=== PATIENT | female | born 1975 | race Caucasian/White ===

== ENCOUNTER 2017-03-31 18:01 | Emergency (ER) | payer OTHER ==
[~2017-03-31] VITALS: Ht 157.5 cm; Wt 79.4 kg
[~2017-03-31 18:01] MED LIST: ALBUTEROL17 GM INH; ALLERGY MEDICATION; BACTRIM DS TABL1 TA1 PO; BENTYL10 MG PO; BENTYL20 MG PO; CELEXA; CELEXA10 MG PO; CIPRO PO; CIPROFLOXACIN500 M1 PO; CLARITIN D; CLARITIN10 M1 PO; FLEXERIL10 M1 PO; FLEXERIL10 MG PO; FLOVENT DI50 MCG/DIS IH; GLUCOPHAGE XR500 MG PO; GLUCOTROL; GLUCOTROL PO; GLUCOTROL10 MG PO; HYZAAR PO; IBUPROFEN800 MG PO; INVOKANA100 MG PO; JANUVIA PO; KEFLEX250 M2 PO; LANTUS SOLOSTAR3 ML SUBQ; LISINOPRIL PO; LISINOPRIL-HCTZ1 T14 PO; LISINOPRIL20 MG PO; METFORMIN HCL500 M1 PO; MOBIC15 MG PO; MONDOXYNE NL100 MG PO; NAPROSYN500 MG PO; NEURONTIN600 MG DOB; NO MEDICATIONS; PHENERGAN DM1 ML DOB; PHENERGAN25 M1 PO; ROBAXIN500 MG PO; TOPAMAX PO; TYLENOL #3 PO; VICODIN 5/1 TAB 5/50 PO; VITAMIN D50000 UNIT PO; VOLTAREN50 MG PO; VOLTAREN75 MG PO; WAL-ZYR10 MG PO; ZANAFLEX4 M1 PO; ZITHROMAX PO; ZOFRAN ODT4 MG PO; ZOFRANODT PO; [UNRECOGNIZED DRUG - OTHER]; [UNRECOGNIZED DRUG - REMARK]; [UNRECOGNIZED DRUG - REMARK] PO
[2017-03-31] MEDS ORDERED: PRENATAL VITAM1 EAC2 (18:13)
[2017-03-31 19:16] LABS: BASOPHIL# 0.1 X10e3 (0-0.3); BASOPHIL% 0.7 % (0-2.5); EOSINOPHIL# 0.2 X10e3 (0-0.7); EOSINOPHIL% 2.1 % (0.0-7.0); HEMATOCRIT 42.7 % (35.0-45.0); HEMOGLOBIN 15.2 gm/dL (12.0-16.0); LYMPHOCYTE# 2.8 X10e3 (1.0-3.5); LYMPHOCYTE% 33.5 % (17.0-45.0); MEAN CELL VOLUME 88.1 FL (83-96); MEAN CORPUSCULAR HEMOGLOBIN 31.4 PG (28-34); MEAN CORPUSCULAR HGB CONC 35.6 g/dL (30-36); MEAN PLATELET VOLUME 5.7 FL (6.5-11.5); MONOCYTE# 0.6 X10e3 (0-1.0); MONOCYTE% 7.8 % (3.0-12.0); NEUTROPHIL# 4.7 X10e3 (1.5-7.1); NEUTROPHIL% 55.9 % (40-75); PLATELET COUNT 285 X10e3 (140-420); RED BLOOD COUNT 4.84 X10e (3.90-5.30); WHITE BLOOD COUNT 8.3 X10e3 (4.0-10.5)
[2017-03-31 19:17] LABS: DIFF IND NO
[2017-03-31 19:21] LABS: URINE SOURCE CLEAN CATCH
[2017-03-31 19:23] LABS: MICRO INDICATED? NO; URINE APPEARANCE HAZY; URINE BILIRUBIN NEG (NEG); URINE BLOOD NEG (NEG); URINE COLOR YELLOW; URINE GLUCOSE NEG (NORM); URINE KETONE 1+ (NEG); URINE LEUKOCYTE ESTERASE NEG (NEG); URINE NITRATE NEG (NEG); URINE PH 5.5 (5-8); URINE PROTEIN NEG (NEG); URINE SPECIFIC GRAVITY >=1.030 (1.003-1.035)
[2017-03-31 19:31] LABS: BUN/CREATININE RATIO 17.77; CALCIUM SERUM 8.9 mg/dL (8.4-10.2); CREATININE SERUM 0.9 mg/dL (0.6-1.4); GLOM FILT RATE Estimated 79.5 mL/min (>60); POTASSIUM 3.5 mmol/L (3.5-5.1)
== END 2017-03-31 20:01 | disposition home or self-care (01) ==
LOC: SED 18:01
PROVIDERS: Physician Assistant
DX: G43.909 Migraine, unspecified, not intractable, without status migrainosus (principal); M54.9 Dorsalgia, unspecified; F17.210 Nicotine dependence, cigarettes, uncomplicated; Z88.5 Allergy status to narcotic agent; Z79.899 Other long term (current) drug therapy
CPT/HCPCS: 36415; 80048; 81003; 84703; 85025; 96361; 96374; 96375; 99284; J1885; J2405